=== PATIENT | female | born 1980 | race Caucasian/White ===

== ENCOUNTER 2020-03-11 07:54 | Outpatient (CLI) | payer BC, SELFPAY ==
[2020-03-11 08:50] LABS: Beta HCG Quantitative < 2.39 mIU/ML
== END 2020-03-11 07:55 | disposition home or self-care (01) ==
PROVIDERS: PCP Physician Assistant; Visit Provider Obstetrics & Gynecology
DX: Z31.41 Encounter for fertility testing (principal)
CPT/HCPCS: 36415; 84702

== ENCOUNTER 2020-03-12 10:47 | Outpatient (CLI) | payer BC, SELFPAY ==
--- NOTE | ~2020-03-12 | XR_ITS ---
EXAMINATION: XR hysterosalpingogram EXAM DATE: 03/12/2020 11:37 INDICATION: Fertility testing. Infertility. TECHNIQUE: Hysterosalpingogram was performed by Dr. Niranjan Roberts MD with fluoroscopic guidance. I was present to obtain fluoroscopic images. The DAP for this procedure was 3.4 Gycm2. FINDINGS: Psychologist Educational radiograph demonstrates an unremarkable pelvis. Fluoroscopic images demonstrates nor mal appearing endometrial cavity which has been cannulated. The left fallopian tube rapidly opacified with free spillage. The right opacified but could not confirm free spillage on this exam. Uterus is without evidence of synechia. IMPRESSION: Patent left fallopian tube. Cannot confirm patency on the right. Reviewed, dictated and finalized at location A. CTOR RISK
== END 2020-03-12 10:48 | disposition home or self-care (01) ==
PROVIDERS: PCP Physician Assistant; Visit Provider Obstetrics & Gynecology
DX: Z31.41 Encounter for fertility testing (principal)
CPT/HCPCS: 58340; 74740; Q9966

== ENCOUNTER → 2020-07-26 10:16 | Outpatient (CLI) | payer BC, SELFPAY ==
--- NOTE | ~2020-07-26 | US_ITS ---
EXAMINATION: US OB transvaginal EXAM DATE: 07/26/2020 10:53 INDICATION: , uncertain dates. Some vaginal bleeding. Recent ultrasound at outside [facility] labs were 600 on 07/24 (beta hCG?). LMP 05/26/2020. TECHNIQUE: Pelvic transvaginal sonogram was performed. There are multiple grayscale and Doppler imag es available for interpretation. There is no prior study for comparison. FINDINGS: Uterus measures 7.4 x 3.6 x 4.7 cm, and is morphologically normal. Endometrial stripe andrea sures 4 mm, which is thin for decidual reaction, positive status. No intrauterine or extrau terine gestation sac identified. There is trace free pelvic fluid. Right adnexa: The ovary measures 3.5 x 2.7 x 2.5 cm, contains the corpus luteal cyst or dominant foll icle measuring 1.2 cm. Ovarian vascular flow confirmed. Left adnexa: The ovary measures 2.4 x 1.5 x 2.3 cm and is morphologically normal. Ovarian vascular fl ow confirmed. IMPRESSION: 1. No intrauterine or extrauterine identified. Reviewed, dictated and finalized at location A.
== END ==
PROVIDERS: Visit Provider Obstetrics & Gynecology
DX: Z36.87 Encounter for antenatal screening for uncertain dates (principal)
CPT/HCPCS: 76817